=== PATIENT | male | born 1955 | race Caucasian/White ===

== ENCOUNTER 2022-06-04 07:54 | Emergency (ER) | payer MEDICARE ==
[2022-06-04 08:22] VITALS: BP 120/76; PULSE 62
[2022-06-04] MEDS ORDERED: LORazepam 2 MG/ML SDV IM ONE (08:59)
== END 2022-06-04 09:25 | disposition home or self-care (01) ==
LOC: JP.ED 07:54
DX: F41.1 Generalized anxiety disorder (principal); I25.119 Atherosclerotic heart disease of native coronary artery with unspecified angina pectoris; E78.00 Pure hypercholesterolemia, unspecified; I10 Essential (primary) hypertension; I25.2 Old myocardial infarction; Z88.8 Allergy status to other drugs, medicaments and biological substances; Z88.5 Allergy status to narcotic agent; Z88.2 Allergy status to sulfonamides; Z91.048 Other nonmedicinal substance allergy status; Z88.6 Allergy status to analgesic agent; Z88.1 Allergy status to other antibiotic agents; Z79.899 Other long term (current) drug therapy; Z79.01 Long term (current) use of anticoagulants
CPT/HCPCS: 93005; 96372; 99283; J2060; 93010